=== PATIENT | male | born 1940 | race Caucasian/White ===

== ENCOUNTER 2021-11-10 07:20 | Day surgery (SDC) | payer MEDICARE, BC ==
[2021-11-10] VITALS (9 sets, daily range): BP systolic 123–154; BP diastolic 64–85
[~2021-11-10] VITALS: Ht 182.9 cm; Wt 89.4 kg
[~2021-11-10 07:20] MED LIST: FINA5TAB2 PO; METO25TA4 PO; PRAV40TA2 PO; TAMS1CAP17 PO
[2021-11-10] MEDS ORDERED: LR 1,000 ML IV SCH ×2 (07:40→10:25)
[2021-11-10] MEDS ORDERED: ROCURONIUM BROMIDE 50 MG/5 ML VIAL As Ordered ONE (07:59)
[2021-11-10] MEDS ORDERED: MIDAZOLAM INJ 2MG/2ML VIAL (J2250 PER 1MG) As Ordered ONE (07:59)
[2021-11-10] MEDS ORDERED: LIDOCAINE 2% 100MG/5ML SDV (FOR ANES.) As Ordered ONE (07:59)
[2021-11-10] MEDS ORDERED: fentaNYL 100 MCG/2 ML INJECTION As Ordered ONE (07:59)
[2021-11-10] MEDS ORDERED: ONDANSETRON 4MG 2ML VIAL As Ordered ONE (07:59)
[2021-11-10] MEDS ORDERED: propofoL 200 MG/20 ML VIAL As Ordered ONE (07:59)
[2021-11-10] MEDS ORDERED: dexameTHASONE 4 MG/ML 1ML VIAL (J1100 PER 1MG) As Ordered ONE (07:59)
[2021-11-10] MEDS ORDERED: ALBUTEROL SULFATE 2.5 MG/0.5 ML INH NEB SOLN NEB ONE (08:10)
[2021-11-10] MEDS ORDERED: LIDOCAINE 4% INJ 5ML AMP NEB ONE (08:10)
[2021-11-10] MEDS ORDERED: HOME MED LIST COMPLETE! XX SCH (08:15)
[2021-11-10] MEDS ORDERED: EPINEPHrine 1MG/10ML SYRINGE 1.5IN As Ordered ONE (09:11)
[2021-11-10] MEDS ORDERED: CETACAINE SPRAY 5GM As Ordered ONE (09:11)
[2021-11-10] MEDS ORDERED: THROMBIN SOLN 5,000 UNITS VIAL As Ordered ONE (09:11)
[2021-11-10] MEDS ORDERED: SUGAMMADEX SODIUM 500 MG/5 ML VIAL (BRIDION) As Ordered ONE (09:39)
[2021-11-10] MEDS ORDERED: ACETAMINOPHEN 1000MG 100ML IV BTL (OFIRMEV) (J0131 PER 10MG) As Ordered ONE (09:45)
[2021-11-10] MEDS ORDERED: ALBUTEROL SULFATE 2.5 MG/0.5 ML INH NEB SOLN INH ONE (10:25)
[2021-11-10] MEDS ORDERED: oxyCODONE 5MG TAB PO PRN (10:25)
[2021-11-10] MEDS ORDERED: ONDANSETRON 4MG 2ML VIAL IV PRN (10:25)
[2021-11-10] MEDS ORDERED: fentaNYL 100 MCG/2 ML INJECTION IV PRN (10:25)
[2021-11-10] MEDS ORDERED: CEPACOL LOZENGE PO PRN (10:35)
[2021-11-10] MEDS ORDERED: ALBUTEROL SULFATE 2.5 MG/0.5 ML INH NEB SOLN NEB PRN (10:35)
[2021-11-10] MEDS ORDERED: TAMSULOSIN 0.4 MG CAP PO SCH (21:00)
[2021-11-10] MEDS ORDERED: METOPROLOL TART 12.5 MG PER 1/2 TAB PO SCH (21:00)
[2021-11-10] MEDS ORDERED: FINASTERIDE 5MG TAB PO SCH (21:00)
[2021-11-11 02:48] VITALS: BP 135/74
[2021-11-11 06:06] VITALS: BP 140/77
== END 2021-11-11 08:32 | disposition home or self-care (01) ==
LOC: M SDC 07:20 → M MSPAV 16:11 → UNDOADMOB 16:11 → M MSPAV 16:11 → M SDC 11-11 08:32 → UNDODISOB 11-11 08:32
PROVIDERS: ATTEND Internal Medicine Pulmonary Disease
DX: R59.0 Localized enlarged lymph nodes (principal); R91.8 Other nonspecific abnormal finding of lung field; C16.0 Malignant neoplasm of cardia; J98.4 Other disorders of lung; I10 Essential (primary) hypertension; E78.5 Hyperlipidemia, unspecified; Z86.16 Personal history of COVID-19; N40.0 Benign prostatic hyperplasia without lower urinary tract symptoms; M19.90 Unspecified osteoarthritis, unspecified site; Z87.19 Personal history of other diseases of the digestive system; Z90.49 Acquired absence of other specified parts of digestive tract; Z85.46 Personal history of malignant neoplasm of prostate; Z92.21 Personal history of antineoplastic chemotherapy; Z98.41 Cataract extraction status, right eye; Z98.42 Cataract extraction status, left eye; Z79.899 Other long term (current) drug therapy; Z88.1 Allergy status to other antibiotic agents
CPT/HCPCS: 31652; 71045; 88173; 88305; J0131; J1100; J2250; J2405; J3010